=== PATIENT | male | born 1980 | race Caucasian/White ===

== ENCOUNTER → 2021-06-12 | Outpatient (CLI) | payer BC | LOC: LAB 12:24 | DX: Z20.822 Contact with and (suspected) exposure to COVID-19 (principal) ==

== ENCOUNTER → 2021-12-19 | Outpatient (CLI) | payer BC ==
[2021-12-19 12:30] LABS: BASO # 0.05 K/mm3 (0.02-0.10); EOS # 0.17 K/mm3 (0.04-0.40); EOS % 2.8 % (0.0-4.0); HEMATOCRIT 47.2 % (42.0-52.0); HEMOGLOBIN 16.1 g/dL (13.5-18.0); LYMPH# 1.56 K/mm3 (1.50-4.00); MEAN CELL VOLUME 85 fl (78-100); MEAN CORPUSCULAR HEMOGLOBIN 29 pg (27-31); MEAN CORPUSCULAR HGB CONC 34 g/dL (33-37); MEAN PLATELET VOLUME 8.7 fl (7.4-10.4); MONO # 0.65 K/mm3 (0.20-0.80); NEU # 3.54 K/mm3 (1.40-6.50); PLATELET COUNT 297 K/mm3 (130-400); RED BLOOD COUNT 5.55 M/mm3 (4.20-5.60); RED CELL DISTRIBUTION WIDTH 11.9 % (11.5-14.5)
[2021-12-19 12:59] LABS: ALBUMIN 4.6 g/dL (3.5-5.0); POTASSIUM 4.3 mmol/L (3.5-5.1)
[2021-12-19 13:00] LABS: CALCIUM 9.7 mg/dL (8.3-10.5)
[2021-12-19 13:01] LABS: TOTAL PROTEIN 8.1 g/dL (6.4-8.3)
[2021-12-19 13:03] LABS: TOTAL BILIRUBIN 1.3 mg/dL (0.2-1.2)
== END ==
LOC: LAB 12:17
PROVIDERS: Family Medicine
DX: Z00.00 Encounter for general adult medical examination without abnormal findings (principal); E78.5 Hyperlipidemia, unspecified; J30.2 Other seasonal allergic rhinitis; F32.A Depression, unspecified; E03.9 Hypothyroidism, unspecified

== ENCOUNTER 2022-07-12 13:12 | Emergency (ER) | payer BC ==
[~2022-07-12] VITALS: Ht 182.9 cm; Wt 104.5 kg
[2022-07-12] MEDS ORDERED: VENLAFAXINE HY150 MG PO (13:43)
[2022-07-12 14:26] LABS: BASO # 0.04 K/mm3 (0.02-0.10); EOS % 3.4 % (0.0-4.0); HEMATOCRIT 44.5 % (42.0-52.0); LYMPH# 1.67 K/mm3 (1.50-4.00); MEAN CELL VOLUME 87 fl (78-100); MEAN CORPUSCULAR HEMOGLOBIN 29 pg (27-31); MEAN CORPUSCULAR HGB CONC 34 g/dL (33-37); MEAN PLATELET VOLUME 8.7 fl (7.4-10.4); MONO # 0.54 K/mm3 (0.20-0.80); NEU # 3.34 K/mm3 (1.40-6.50); PLATELET COUNT 271 K/mm3 (130-400); RED BLOOD COUNT 5.14 M/mm3 (4.20-5.60); WHITE BLOOD COUNT 5.8 K/mm3 (4.8-10.8)
[2022-07-12 14:35] LABS: POTASSIUM 4.2 mmol/L (3.5-5.1)
[2022-07-12 14:36] LABS: CALCIUM 9.1 mg/dL (8.3-10.5)
[2022-07-12] MEDS ORDERED: AMLODIPINE BESYL5 MG PO (16:58)
[2022-07-12 17:12] VITALS: BP 131/89
== END 2022-07-12 17:10 | disposition home or self-care (01) ==
LOC: ED 13:12
PROVIDERS: Family Medicine
DX: G44.209 Tension-type headache, unspecified, not intractable (principal); I10 Essential (primary) hypertension; Z28.310 Unvaccinated for COVID-19

== ENCOUNTER → 2022-08-04 | Outpatient (CLI) | payer BC ==
[~2022-08-04] MED LIST: AMLODIPINE BESYL5 MG PO; VENLAFAXINE HY150 MG PO
== END ==
LOC: RAD 07:38
DX: R51.9 Headache, unspecified (principal)

== ENCOUNTER 2023-09-26 17:50 | Emergency (ER) | payer BC ==
[~2023-09-26 17:50] MED LIST changes: +NS & 20mEq KCl 1,000 ML IV ONE; +NS 1,000 ML IV ONE; +dilTIAZem 25 MG/5 ML VIAL IV ONE
[2023-10-29 19:57] LABS: ALBUMIN 4.4 g/dL (3.5-5.0); ALT/SGPT 21 U/L (0-55); AST-SGOT 20 U/L (5-34); CALCIUM 9.3 mg/dL (8.3-10.5); CARBON DIOXIDE 22 mmol/L (22-29); GLUCOSE 106 mg/dL (75-110); SODIUM 140 mmol/L (136-145); TOTAL BILIRUBIN 0.9 mg/dL (0.2-1.2); TOTAL PROTEIN 7.5 g/dL (6.4-8.3); TROPONIN-I < 0.030 ng/mL (0.00-0.033)
[2023-10-29 19:58] LABS: D-DIMER 0.11 mg/L FEU (0.15-0.50); HEMATOCRIT 45.7 % (42.0-52.0); HEMOGLOBIN 15.6 g/dL (13.5-18.0); MEAN PLATELET VOLUME 8.7 fl (7.4-10.4); RED BLOOD COUNT 5.38 M/mm3 (4.20-5.60); RED CELL DISTRIBUTION WIDTH 11.6 % (11.5-14.5)
== END 2023-09-26 21:45 | disposition short-term general hospital (02) ==
LOC: ED 17:50
PROVIDERS: Physician Assistant
DX: I48.91 Unspecified atrial fibrillation (principal)
CPT/HCPCS: J3480; J7030

== ENCOUNTER → 2023-10-07 | Outpatient (CLI) | payer BC ==
[~2023-10-07] MED LIST changes: -NS & 20mEq KCl 1,000 ML IV ONE; -NS 1,000 ML IV ONE; -dilTIAZem 25 MG/5 ML VIAL IV ONE
[2023-11-25 15:27] LABS: ALBUMIN 4.4 g/dL (3.5-5.0); ALT/SGPT 29 U/L (0-55); AST-SGOT 21 U/L (5-34); CARBON DIOXIDE 23 mmol/L (22-29); GLUCOSE 92 mg/dL (75-110); SODIUM 138 mmol/L (136-145); TOTAL BILIRUBIN 0.7 mg/dL (0.2-1.2); TOTAL PROTEIN 7.4 g/dL (6.4-8.3); TROPONIN-I < 0.030 ng/mL (0.00-0.033)
== END ==
LOC: LAB 14:27
PROVIDERS: Nurse Practitioner
DX: I48.91 Unspecified atrial fibrillation (principal)

== ENCOUNTER → 2024-07-04 | Outpatient (CLI) | payer BC | LOC: LAB 08:07 | DX: I48.91 Unspecified atrial fibrillation (principal); I10 Essential (primary) hypertension ==